=== PATIENT | male | born 1980 | race Caucasian/White ===

== ENCOUNTER 2017-04-18 17:13 | Emergency (ER) | payer MEDICAID, OTHER ==
[~2017-04-18] VITALS: Wt 81.5 kg
--- NOTE | 2017-04-18 18:32 | RADRPT ---
PROCEDURE: XR Shoulder CLINICAL INDICATION: Shoulder pain. TECHNIQUE: Three views of the right shoulder are available for review. COMPARISON: None available. FINDINGS: There is no acute fracture, dislocation, or other ostoearticular abnormality. There is de formity of the mid clavicle, consistent with prior injury. The alignment is otherwise normal and the surrounding soft tissues are unremarkable. The glenohumeral joint is intact. The acromioclavicular joint is also intact and unremarkable. The visualized right lung is clear and the visualized right ribs demonstrate no displaced fracture. IMPRESSION: 1. Negative for acute fracture dislocation. 2. Healed midclavicular fracture. RPTAT: HLBP .Ted Estrada MD, Date Time Electronically viewed and signed by .Ted Estrada MD, MD on 04/18/2017 18:32 .P/
[2017-04-18] MEDS ORDERED: IBUP800T25 PO (18:36)
[2017-04-18] MEDS ORDERED: HYDR-902 PO (18:36)
--- NOTE | 2017-04-18 18:40 | ERD ---
ER Documentation Chief Complaint Date/Time DATE: 04/18/17 TIME: 18:38 Chief Complaint RIGHT SHOULDER INJURY WHILE PLAYING SOCCER HPI This 36-year-old male who was playing soccer when he lost his balance going for the ball and landed on his right shoulder. Is complaining of pain to the right trapezius. The patient says that he is worried he refractured his clavicle because he heard a pop when he landed. He however does not have any clavicular pain. He has no numbness weakness in his arm. He did not hit his head and has no loss of consciousness. Pain is sharp worse with movement better with rest ROS All systems reviewed and are negative except as per history of present illness. Medications Home Meds Active Scripts Ibuprofen* (Motrin*) 800 Mg Tab, 800 MG PO Q6H Y for PAIN AND OR ELEVATED TEMP, #30 TAB Prov:EBAR ABDALLA DO 04/18/17 Hydrocodone/Acetaminophen (Sandy 10-325 Tablet) 1 Each Tablet, 1 TAB PO Q6H Y for PAIN, #20 TAB Prov:BEAR ABDALLA DO 04/18/17 Allergies Allergies: Coded Allergies: No Known Allergy (Unverified , 04/18/17) PMhx/Soc Medical and Surgical Hx: pt denies Medical Hx, pt denies Surgical Hx Hx Alcohol Use: No Hx Substance Use: No Hx Tobacco Use: No Smoking Status: Never smoker FmHx Family History: No coronary disease Physical Exam Vitals Vital Signs Date Time Temp Pulse Resp B/P Pulse Ox O2 Delivery O2 Flow Rate FiO2 04/18/17 17:15 99.0 96 17 131/88 96 Physical Exam Const: Well-developed, well-nourished Head: Atraumatic, normocephalic Eyes: Normal Conjunctiva, PERRLA, EOMI, normal sclera, no nystagmus ENT: Normal External Ears, Nose and Mouth, moist mucus membranes. Neck: Full range of motion. No meningismus, no lymphadenopathy. Resp: Clear to auscultation bilaterally, no wheezing, rhonchi, rales Cardio: Regular rate and rhythm, no murmurs, S1 S2 present Abd: Soft, non tender x 4, non distended. Normal bowel sounds, no guarding or rebound, no pulsitile abdominal masses or bruits Skin: No petechiae or rashes, no ecchymosis , no maculopapular rash Back: No midline or flank tenderness Ext: No cyanosis, or edema, FROM x 3, the patient has some tenderness to the right trapezius muscle there is no clavicular tenderness no signs of dislocation. There is some pain with range of motion of the shoulder no gross evidence of fracture or dislocation, normal inspection, neurovascularly intact x 4 Neur: Awake and alert, STR 5/5 x 4, sensation intact x 4, no focal findings, cerebellum intact Psych: Normal Mood and Affect Procedures/MDM PROCEDURE: XR Shoulder CLINICAL INDICATION: Shoulder pain. TECHNIQUE: Three views of the right shoulder are available for review. COMPARISON: None available. FINDINGS: There is no acute fracture, dislocation, or other ostoearticular abnormality. There is deformity of the mid clavicle, consistent with prior injury. The alignment is otherwise normal and the surrounding soft tissues are unremarkable. The glenohumeral joint is intact. The acromioclavicular joint is also intact and unremarkable. The visualized right lung is clear and the visualized right ribs demonstrate no displaced fracture. IMPRESSION: 1. Negative for acute fracture dislocation. 2. Healed midclavicular fracture. RPTAT: HLBP .Ted Estrada MD, Date Time Electronically viewed and signed by .Ted Estrada MD, MD on 04/18/2017 18:32 .P/ CC: BEAR ABDALLA DO We will give the patient an arm sling. We will follow-up with orthopedics and provide him with some pain medication Departure Diagnosis: Primary Impression: Contusion of right shoulder Encounter type: initial encounter Qualified Code: S40.011A - Contusion of right shoulder, initial encounter Additional Impression: Fall Encounter type: initial encounter Qualified Code: W19.XXXA - Fall, initial encounter Condition: Stable Patient Instructions: Shoulder Contusion Referrals: MARS SANCHEZ MD, APOSTOLOS A. DO Apr 18, 2017 18:40
== END 2017-04-18 18:53 | disposition home or self-care (01) ==
LOC: FTE 17:13
DX: S40.011A Contusion of right shoulder, initial encounter (principal); X50.9XXA Other and unspecified overexertion or strenuous movements or postures, initial encounter; Y92.9 Unspecified place or not applicable
CPT/HCPCS: 73030; Z7502